=== PATIENT | female | born 1990 | race Caucasian/White ===

== ENCOUNTER 2017-09-06 11:45 | Emergency (ER) | payer BC ==
[~2017-09-06] VITALS: Ht 180.3 cm; Wt 97.0 kg
[2017-09-06 11:47] VITALS: BP 121/67; PULSE 71; RESP 18; TEMP 97.9; O2SAT 99
--- NOTE | 2017-09-06 11:52 | PD ---
HPI Chief Complaint: Injury Time Seen by Provider: 11:52 Travel History International Travel<30 days: No Contact w/Intl Traveler<30days: No Traveled to known affect area: No History of Present Illness HPI 26-year-old female presents the emergency department with injury to the right great toe. Was in a shower with glass doors when the door fell off the hinges and landed on top of her right great toe. There was no broken glass. She developed sudden onset pain, swelling, and bruising under the nail of the right great toe. Pain is currently 8 out of 10 and pulsing. Is no bleeding or open wound. This happened last evening. Patient denies any other injury. She has no known drug allergies. PFSH Past Medical History ?: Not Social History Alcohol Use: Yes Tobacco Use: No Substance Use: No Allergies-Medications (Allergen,Severity, Reaction): Coded Allergies: No Known Allergies (Unverified , 09/06/17) Reported Meds & Prescriptions Reported Meds & Active Scripts Active No Active Prescriptions or Reported Medications Review of Systems Except as stated in HPI: all other systems reviewed are Neg General / Constitutional: No: Fever Eyes: No: Visual changes HENT: No: Headaches Cardiovascular: No: Chest Pain or Discomfort Respiratory: No: Shortness of Breath Gastrointestinal: No: Abdominal Pain Genitourinary: No: Dysuria Musculoskeletal: Positive: Pain (see history present illness.) Skin: No Rash Neurologic: No: Weakness Psychiatric: No: Depression Endocrine: No: Polydipsia Hematologic/Lymphatic: No: Easy Bruising Physical Exam Narrative GENERAL: Patient appears in mild distress. SKIN: Warm and dry. Normal color. Normal turgor. Patient is obvious subungual hematoma to the right great toenail without significant injury to the nail itself. No open wounds or bleeding is noted. HEAD: Atraumatic. Normocephalic. EYES: Pupils equal and round. No scleral icterus. No injection or drainage. ENT: No nasal bleeding or discharge. Mucous membranes pink and moist. NECK: Trachea midline. No JVD. CARDIOVASCULAR: Regular rate and rhythm. RESPIRATORY: No accessory muscle use. Clear to auscultation. Breath sounds equal bilaterally. GASTROINTESTINAL: Abdomen soft, non-tender, nondistended. Hepatic and splenic margins not palpable. MUSCULOSKELETAL: Extremities without clubbing, cyanosis, or edema. No obvious deformities. See skin. NEUROLOGICAL: Awake and alert. No obvious cranial nerve deficits. Motor grossly within normal limits. Five out of 5 muscle strength in the arms and legs. Normal speech. PSYCHIATRIC: Appropriate mood and affect; insight and judgment normal. Data Data Last Documented VS Vital Signs Date Time Temp Pulse Resp B/P (MAP) Pulse Ox O2 Delivery O2 Flow Rate FiO2 09/06/17 11:47 97.9 71 18 121/67 (85) 99 Orders Orders Toe (Min 2vws) (09/06/17 11:58) Ice/Cold Pack (09/06/17 11:58) Splint Or Brace Apply/Monitor (09/06/17 11:58) [facility] Medical Decision Making Medical Screen Exam Complete: Yes Emergency Medical Condition: Yes Differential Diagnosis Right great toe contusion. Subungual hematoma. Possible fracture. Narrative Course Electrocautery was utilized to release the pressure from the subungual hematoma. Dressing was placed over the toe. X-ray of the right great toe was ordered. X-ray shows no obvious fracture or dislocation. Patient is placed in a postop shoe for comfort. She is to take Tylenol or ibuprofen and ice the area frequently. Patient follow-up as needed. Procedures Procedure Narrative Right great toe was prepped. Electrocautery was used to burn a small hole to the proximal medial right great toenail. Moderate amount of blood was expressed with relief of symptoms. Dressing was placed over the area. Diagnosis Primary Impression: Contusion of right great toe without damage to nail, initial encounter Additional Impression: Subungual hematoma of great toe of right foot Qualified Codes: S90.211A - Contusion of right great toe with damage to nail, initial encounter Referrals: Yaw De Dios DPM Primary Care Physician Patient Instructions: Foot Contusion (ED), General Instructions, Subungual Hematoma (ED) Additional Instructions: X-ray shows no obvious fracture or dislocation. Patient is placed in a postop shoe for comfort. She is to take Tylenol or ibuprofen and ice the area frequently. Patient follow-up as needed. Scripts No Active Prescriptions or Reported Meds Disposition: 01 DISCHARGE HOME Condition: Stable Chris Pereira Sep 06, 2017 11:52
--- NOTE | 2017-09-06 12:31 | RADRPT ---
EXAM DATE/TIME: 09/06/2017 12:01 [place] COMPARISON: No previous studies available for comparison. INDICATIONS : Dropped a door on right great toe yesterday. MEDICAL HISTORY : None. SURGICAL HISTORY : None. ENCOUNTER: Initial ACUITY: 2 days PAIN SCORE: 5/10 LOCATION: Right Great toe FINDINGS: Examination of the first digit of the right foot demonstrates no evidence of fracture or dislocation. No radiopaque foreign bodies are seen. The soft tissues are intact. CONCLUSION: Unremarkable examination of the right first toe. Jude Esteves MD on September 06, 2017 at 12:29 Board Certified Radiologist. This report was verified electronically.
== END 2017-09-06 12:29 | disposition home or self-care (01) ==
LOC: PHEFT 11:45
DX: S90.111A Contusion of right great toe without damage to nail, initial encounter (principal); W20.8XXA Other cause of strike by thrown, projected or falling object, initial encounter; Y92.002 Bathroom of unspecified non-institutional (private) residence as the place of occurrence of the external cause; Y93.E1 Activity, personal bathing and showering
CPT/HCPCS: 11740; 73660; 99283; L3260